=== PATIENT | female | born 1935 | race Caucasian/White ===

== ENCOUNTER 2017-02-14 07:58 | Inpatient (IN) | payer MEDICARE, OTHER ==
[~2017-02-14] VITALS: Ht 165.1 cm; Wt 63.2 kg
[2017-02-14] MEDS ORDERED: ASPI81CH CHEW (08:40)
[2017-02-14] MEDS ORDERED: MEMA28CA PO (08:40)
[2017-02-14] MEDS ORDERED: MULTTAB67 PO (08:40)
[2017-02-14] MEDS ORDERED: MELO-1 PO (08:40)
[2017-02-14] MEDS ORDERED: RISE1TAB PO (08:40)
[2017-02-28] MEDS ORDERED: ePHEDrine/NS 25 MG/5 ML SYR IV ONE (10:50)
[2017-02-28] MEDS ORDERED: PROPOFOL 200 MG/20 ML AMP IV ONE (10:50)
[2017-02-28] MEDS ORDERED: PHENYLEPH/NS 1000 MCG/10 ML SYR IV ONE (10:51)
[2017-02-28] MEDS ORDERED: LACTATED RINGER'S 1000 ML INJ 2,000 ML IV ONE (10:51)
[2017-02-28] MEDS ORDERED: ONDANSETRON HCL 4 MG/2 ML VIAL IV PUSH ONE (10:51)
[2017-02-28] MEDS ORDERED: LACTATED RINGER'S 1000 ML IV PRN (11:15)
[2017-02-28] MEDS ORDERED: POVIDONE IODINE 5% (ANTISEPSIS KIT) 4 APPLICATIONS EACH NARE PRN (11:15)
[2017-02-28] MEDS ORDERED: SODIUM CHLORID 0.9% 500 ML IV PRN (11:15)
[2017-02-28] MEDS ORDERED: CHLORHEXIDINE GLUCONATE 2 % 1 PACK (2 CLOTHS) TOPICAL PRN (11:15)
[2017-02-28] MEDS ORDERED: CHLORHEXIDINE GLUCONATE 4% SOLN 120 ML BTL TOPICAL SCH (11:15)
[2017-02-28] MEDS ORDERED: ceFAZolin 2 GM PREMIX 50 ML IV SCH (11:15)
[2017-02-28] MEDS ORDERED: METOPROLOL TARTRATE 25 MG TAB PO PRN (11:15)
[2017-02-28] MEDS ORDERED: VANCOMYCIN 1000 MG/NS 250 ML (for <70 kg) IV SCH ×2 (11:15)
[2017-02-28] MEDS ORDERED: INSULIN HUMAN REGULAR 1,000 UNITS/10 ML VIAL SQ PRN (11:15)
[2017-02-28 11:25] VITALS: BP 121/69; PULSE 73; RESP 16; TEMP 98; O2SAT 97
[2017-02-28] MEDS ORDERED: GENTAMICIN SULFATE 80 MG/2 ML VIAL ONE (11:47)
[2017-02-28] MEDS ORDERED: ROPIVACAINE PERI-ARTICULAR INJECTION. P-ARTICULR SCH ×5 (12:00)
[2017-02-28] MEDS ORDERED: DEXAMETHASONE SOD PHOS 4 MG/ML VIAL ONE (12:25)
[2017-02-28] MEDS ORDERED: MIDAZOLAM HCL 2 MG/2 ML VIAL ONE (12:25)
[2017-02-28] MEDS ORDERED: ROPIVACAINE 0.5% PF INJ 24.63 ML, KETOROLAC INJ 30 MG, EPINEPHrine (1:1000) INJ 0.5 MG,... P-ARTICULR SCH ×5 (14:00)
[2017-02-28] MEDS ORDERED: Post-op Orders (for Pharmacy) MISC XX ONE (15:00)
[2017-02-28] MEDS ORDERED: SODIUM CHLORIDE 0.9% FLUSH 5 ML FLUSH IVF PRN (15:00)
[2017-02-28] MEDS ORDERED: BEDSIDE COMMODE1 MI1 (15:02)
[2017-02-28] MEDS ORDERED: WALKER WHEELS/F1 MIS (15:02)
[2017-02-28] MEDS ORDERED: CPMMACHINE (15:02)
--- NOTE | 2017-02-28 15:04 | HHI.FF ---
Face to Face Verification Diagnosis: (1) Osteoarthritis of left knee Physical Therapy Gait training, Transfer training, bed to chair Knee: Total knee, Protocol: Left, Full weight bearing Right LE Weight Bearing: WB as tolerated Left LE Weight Bearing: WB as tolerated Nursing RN: 3 days/week x 2 weeks Nursing: Dressing changes (clean incision with alcohol and apply dry sterile dressing ) Additional Instructions PT/INR q Tuesday and , call/text results to Berenice ORTIZ [phone] Goal INR 1.5-1.8 I have seen patient Maricel Valdez on 02/28/17. My clinical findings support the need for the requested home health care services because: Limited ability to care for self High risk of falls I certify that my clinical findings support that this patient is homebound because: Post-op weakness Trevor Epperson MD Feb 28, 2017 15:04
--- NOTE | 2017-02-28 15:37 | RADRPT ---
EXAM DATE/TIME: 02/28/2017 14:57 [facility] COMPARISON: No previous studies available for comparison. INDICATIONS : post left knee arthroplasty MEDICAL HISTORY : Arthritis. SURGICAL HISTORY : ENCOUNTER: Initial ACUITY: 1 day PAIN SCORE: 0/10 LOCATION: Left Knee FINDINGS: AP and lateral views of the knee following arthroplasty reveals a prosthesis in anatomic alignment. F racture is not appreciated. Surgical drain is evident CONCLUSION: Status post total knee arthroplasty. Jefry Stern MD FACR. Board Certified Radiologist. This report was verified electronically.
[2017-02-28] MEDS ORDERED: DO NOT ADM ANY ANTICOAGULANT DRUGS PRN (16:45)
[2017-02-28] MEDS ORDERED: ZOLPIDEM TARTRATE 5 MG TAB PO PRN (17:00)
[2017-02-28] MEDS ORDERED: ONDANSETRON HCL 4 MG/2 ML VIAL IVP PRN (17:00)
[2017-02-28] MEDS ORDERED: ALUMINUM/MAGNESIUM/SIMETH 30 ML CUP PO PRN (17:00)
[2017-02-28] MEDS ORDERED: MORPHINE SULFATE 8 MG/ML INJ IM PRN (17:00)
[2017-02-28] MEDS ORDERED: ACETAMINOPHEN/HYDROcodone 325 MG/5 MG TAB PO PRN (17:00)
--- NOTE | 2017-02-28 17:07 | HHI.PR ---
Immediate Post Op Note Procedure Date: Feb 28, 2017 Pre Op Diagnosis: L Knee OA,Genu Valgus Deformity Post Op Diagnosis: Same Surgeon: Trevor Epperson MD [employer] Sales Director(s): Berenice Lopez PA-C Procedure: L TKR Complications: None Specimen(s) removed: None Estimated blood loss: 50cc Anesthesia: Regional Block, Spinal, Local Drains: Hemovac Tourniquet time (min at mmHg) 53 min @ 250 mm Hg Patient to: PACU Patient Condition: Good Implant/Devices: SEE IMPLANT LOG (if applicable) Date/Time of Procedure: SEE SURGICAL CARE RECORD Trevor Epperson MD Feb 28, 2017 17:07
[2017-02-28 18:37] VITALS: BP 129/98; PULSE 81; RESP 17; TEMP 96.7; O2SAT 100
[2017-02-28] MEDS: SODIUM CHLORIDE 0.9% FLUSH 5 ML FLUSH IVF SCH (21:00)
[2017-02-28] MEDS: MEMANTINE HCL 10 MG TAB PO SCH (21:53)
[2017-02-28 23:46] VITALS: O2SAT 100
[2017-03-01] VITALS: BP 135/67; PULSE 83; RESP 20; TEMP 96.9; O2SAT 100
[2017-03-01] MEDS ORDERED: MAGNESIUM HYDROXIDE SUSP 30 ML CUP PO PRN (00:45)
[2017-03-01] MEDS ORDERED: POLYETHYLENE GLYCOL 17 GM PKG PO PRN (00:45)
[2017-03-01 04:00] VITALS: BP 120/58; PULSE 89; RESP 20; TEMP 99.1; O2SAT 98
[2017-03-01] MEDS: LACTATED RINGER'S 1000 ML INJ 1,000 ML IV SCH ×2 (05:30→16:52)
[2017-03-01] MEDS: ACETAMINOPHEN/HYDROcodone 325 MG/5 MG TAB PO PRN ×4 (06:00→18:16)
--- NOTE | 2017-03-01 07:17 | PD.ORT.PN ---
Subjective Subjective Remarks POD#1 L TKR No sob;no chest pain Objective Vitals Vital Signs Date Time Temp Pulse Resp B/P Pulse Ox O2 Delivery O2 Flow Rate FiO2 03/01/17 07:03 18 03/01/17 04:00 99.1 89 20 120/58 98 03/01/17 03:19 Room Air 03/01/17 00:00 96.9 83 20 135/67 100 02/28/17 23:46 100 02/28/17 18:37 96.7 81 17 129/98 100 02/28/17 18:25 71 16 141/62 98 Room Air 02/28/17 18:00 72 16 137/63 100 Room Air 02/28/17 17:45 78 16 124/58 100 Room Air 02/28/17 17:30 74 16 131/62 100 Room Air 02/28/17 17:15 76 16 131/63 99 Room Air 02/28/17 17:00 82 16 127/61 100 Room Air 02/28/17 16:45 84 16 145/53 99 Room Air 02/28/17 16:15 93 16 109/52 97 Room Air 02/28/17 16:00 88 16 131/52 100 Room Air 02/28/17 15:45 92 16 111/59 98 Room Air 02/28/17 15:30 83 16 102/51 99 Room Air 02/28/17 15:15 81 16 116/49 98 Room Air 02/28/17 15:00 85 16 98/55 100 Simple Mask 10 02/28/17 14:53 96.8 78 16 117/49 100 Simple Mask 10 02/28/17 11:25 98.0 73 16 121/69 97 I/O 02/28/17 02/28/17 02/28/17 03/01/17 03/01/17 03/01/17 07:00 15:00 23:00 07:00 15:00 23:00 Intake Total 1800 ml 874 ml 945 ml Output Total 50 ml 175 ml Balance 1750 ml 699 ml 945 ml Intake Oral 240 ml 360 ml IV Total 134 ml 585 ml Other 1800 ml 500 ml Output Urine Total 0 ml Drainage Total 25 ml Estimated Blood Loss 50 ml Autotransfusion 150 ml # Voids 1 2 # Bowel Movements 0 2 Imaging Last 24 hours Impressions Knee X-Ray 02/28/17 5235 Signed Impressions: Service Date/Time: Tuesday, February 28, 2017 14:57 - CONCLUSION: Status post total knee arthroplasty. Jefry Stern MD Objective Remarks N/V intact No calf tenderness;neg glenda's Assessment & Plan Assessment and Plan Ortho stable PT/Rehab today Coumadin,TEDS,sequentials for DVT prophylaxsis D/C home today or tomorrow Trevor Epperson MD Mar 01, 2017 07:17
[2017-03-01 07:19] LABS: HEMATOCRIT 32.1 % (35.0-46.0); REVIEW FLAG FINAL
[2017-03-01 07:20] LABS: INTERNATIONAL NORMALIZED RATIO 1.6 RATIO; PROTHROMBIN TIME - PATIENT 17.5 SEC (9.8-11.6)
[2017-03-01 08:00] VITALS: BP 122/63; PULSE 87; RESP 17; TEMP 98.7; O2SAT 97
[2017-03-01] MEDS: MEMANTINE HCL 10 MG TAB PO SCH ×2 (08:42→21:36)
[2017-03-01] MEDS: SODIUM CHLORIDE 0.9% FLUSH 5 ML FLUSH IVF SCH ×2 (08:49→21:00)
[2017-03-01 11:38] VITALS: BP 96/54; PULSE 78; RESP 17; TEMP 98.7; O2SAT 98
--- NOTE | 2017-03-01 15:13 | MB ---
cc: JAMIE SHORE MD Corrected Copy: 03/02/17 DATE OF CONSULTATION: 03/01/2017 DATE OF : 1935 REASON FOR CONSULTATION Medical management. HISTORY OF PRESENT ILLNESS This is a pleasant 82-year-old white female who had been dealing with osteoarthritis in her left knee which affected her usual ADLs. The patient was followed per ortho and had multiple outpatient medical treatment regimens She elected for a right total knee arthroplasty. This was performed on 02/28/[address] Epperson. The patient is on Coumadin therapy with a history of valvular heart disease as well as other co-morbidities. Noted dizziness today x1 when attempting to get up with rehab for the first time being out of bed. Her symptoms passed after a few minutes of sitting up. The hospitalist service will assist with her management. PAST MEDICAL HISTORY 1. Osteoporosis. 2. Osteoarthritis. 3. Degenerative disc disease. 4. Heart murmur. 5. Urinary urgency. PAST SURGICAL HISTORY 1. GB removal. 2. Right foot bunionectomy. 3. Tonsillectomy. MEDICATIONS 1. Meloxicam. 2. Atelvia. 3. ASA. 4. Coumadin. 5. Vitamins. FAMILY HISTORY CVA. SOCIAL HISTORY The patient lives alone. Nonsmoker. Occasional wine input. REVIEW OF SYSTEMS She is having pain in her right knee. She is status post left total knee arthroplasty. Drain is still in place. The patient did note some dizziness when up with PT this morning. Other systems are negative or unremarkable. PHYSICAL EXAMINATION VITAL SIGNS: Temperature has been as high as 99.1 today, currently 98.7, pulse 78, respirations 18, blood pressure today 120/58, 122/63 and 96/54. GENERAL: An elderly white female who looks her stated age sitting up in a chair. She is awake and answers questions appropriately. SKIN: Pale, warm and dry. HEENT: Atraumatic, normocephalic. PERRLA. Oral is slightly dry. Some mild clear nasal drainage. NECK: Supple. CARDIOVASCULAR: S1, S2. Rhythm is regular. Systolic murmur heard at the left sternal border. She has no edema in her right leg and both upper extremities. Pulses are intact. Left leg and knee have some generalized edema noted around the surgical site, otherwise none in the left lower extremity. LUNGS: Lung sounds essentially clear anteriorly and posteriorly with no wheezes or rhonchi. ABDOMEN: Flat, soft, nontender, nondistended. Active bowel sounds. MUSCULOSKELETAL: No obvious deformities. Moving her extremities purposefully. She can move her left foot and toes on command. Her dressing is secure and intact. NEUROLOGIC: She is alert, awake, answers questions appropriately. PSYCHIATRIC: Mood and affect are appropriate. LABORATORY DATA Hemoglobin drawn on the 25th is 10.8. INR is 1.6. ASSESSMENT 1. Severe osteoarthritis left knee status post right total knee arthroplasty. 2. Hypertension. 3. Diabetes type 2 insulin dependent. PLAN The plan is to monitor and assist with her medical management. The patient's Coumadin is to be started today 03/01/2017. Will monitor with the assistance of pharmacy for her dosing. Pain management and post-op care per the orthopedic team. The patient is being assisted with the rehab PT and OT team. DVT prophylaxis with Coumadin and TEDs. It is noted from an orthopedic standpoint she is stable. Discharge planning will be tentatively tomorrow pending any other symptoms of dizziness. The patient's blood pressure was noted to be 96/54. Will encourage p.o. fluids. Will monitor her pain management. Will encourage the patient to sit on the side of the bed for a few seconds to gain her strength before trying to stand. Her plan is to go home and work with therapy in her home. Her daughter is at her bedside and states that she will be with her. We appreciate the consult. Dictated by: MAXINE Velazquez MD SIN Nicolas/DAKOTA /2:30 PM /10:16 AM
[2017-03-01 16:00] VITALS: BP 141/72; PULSE 80; RESP 18; TEMP 98.1; O2SAT 100
[2017-03-01] MEDS ORDERED: WARFARIN SOD 5 MG TAB PO SCH (16:00)
[2017-03-01 20:25] VITALS: BP 139/65; PULSE 87; RESP 16; TEMP 98.7; O2SAT 97
[2017-03-02 00:15] VITALS: BP 141/72; PULSE 82; RESP 17; TEMP 97.9; O2SAT 96
[2017-03-02] MEDS: LACTATED RINGER'S 1000 ML INJ 1,000 ML IV SCH (06:30)
[2017-03-02 07:00] LABS: AUTOMATED NEUTROPHIL # 4.9 TH/MM3 (1.8-7.7); BASOPHIL % 0.8 % (0.0-2.0); EOSINOPHIL # 0.1 TH/MM3 (0-0.4); EOSINOPHIL % 0.9 % (0.0-4.0); HEMATOCRIT 31.7 % (35.0-46.0); HEMO FLAGS DIFF FINAL; LYMPH % 7.8 % (9.0-44.0); LYMPHOCYTE # 0.5 TH/MM3 (1.0-4.8); MEAN CELL VOLUME 98.4 FL (80.0-100.0); MEAN CORPUSCULAR HEMOGLOBIN 33.6 PG (27.0-34.0); MEAN CORPUSCULAR HGB CONC 34.1 % (32.0-36.0); MONO % 11.2 % (0.0-8.0); NEUT % 79.3 % (16.0-70.0); PLATELET COUNT 185 TH/MM3 (150-450); RED BLOOD COUNT 3.22 MIL/MM3 (4.00-5.30); WHITE BLOOD COUNT 6.2 TH/MM3 (4.0-11.0)
[2017-03-02 07:03] LABS: INTERNATIONAL NORMALIZED RATIO 1.7 RATIO; PROTHROMBIN TIME - PATIENT 19.4 SEC (9.8-11.6)
[2017-03-02 07:19] LABS: BICARBONATE 25.1 MEQ/L (21.0-32.0); POTASSIUM 3.7 MEQ/L (3.5-5.1)
--- NOTE | 2017-03-02 07:37 | PD.ORT.PN ---
Subjective Subjective Remarks pt doing better, post op knee pain dizziness from yesterday has resolved no chest pain Objective Vitals Vital Signs Date Time Temp Pulse Resp B/P Pulse Ox O2 Delivery O2 Flow Rate FiO2 03/02/17 03:21 Room Air 03/02/17 00:15 97.9 82 17 141/72 96 03/02/17 00:12 Room Air 03/01/17 20:25 98.7 87 16 139/65 97 03/01/17 19:15 18 03/01/17 16:00 98.1 80 18 141/72 100 03/01/17 11:38 98.7 78 17 96/54 98 03/01/17 08:00 98.7 87 17 122/63 97 I/O 03/01/17 03/01/17 03/01/17 03/02/17 03/02/17 03/02/17 07:00 15:00 23:00 07:00 15:00 23:00 Intake Total 945 ml 400 ml 240 ml 240 ml Balance 945 ml 400 ml 240 ml 240 ml Intake Oral 360 ml 400 ml 240 ml 240 ml IV Total 585 ml # Voids 2 3 1 1 # Bowel Movements 2 0 0 0 Result Diagram: 03/02/17 0536 03/02/17 0536 Other Results Laboratory Tests Test 03/02/17 05:36 Prothrombin Time 19.4 SEC (9.8-11.6) Prothromb Time International 1.7 RATIO Ratio Imaging Last 24 hours Impressions Knee X-Ray 02/28/17 1454 Signed Impressions: Service Date/Time: Tuesday, February 28, 2017 14:57 - CONCLUSION: Status post total knee arthroplasty. Jefry Stern MD Objective Remarks seen in the room with her daughter Cheryl sitting up comfortably in chair left knee dressing dry and intact N/V intact No calf tenderness;neg glenda's Assessment & Plan Assessment and Plan POD #2 s/p L TKA PT/Rehab today Coumadin,TEDS,sequentials for DVT prophylaxsis D/C home today with [facility], orthopedically stable Berenice Lopez Mar 02, 2017 07:37
[2017-03-02 08:00] VITALS: BP 175/86; PULSE 91; RESP 18; TEMP 99; O2SAT 97
--- NOTE | 2017-03-02 08:50 | HHI.DS ---
Discharge Summary Admission Date Feb 28, 2017 at 10:29 Discharge Date: Mar 02, 2017 Admitting Diagnosis Left knee osteoarthritis Diagnosis: (1) Osteoarthritis of left knee Diagnosis: Principal Procedures Left total knee arthroplasty Brief History This is an 82 year old female patient who presents with the following history. Patient has had increasing pain involving her left knee with weight bearing ambulation. She has tried over the counter medications and has also been on Meloxicam prescription anti-inflammatory. She has tried ice. She was provided a hinged knee cage brace in 2012 and has also failed exercise over the years and use of a cane. She had a left knee intra-articular steroid injection in 2012 which only provided relief temporarily. She states her pain has progressed and is now interfering with activities of daily living. CBC/BMP: 03/02/17 0536 03/02/17 0536 Significant Findings Laboratory Tests Test 03/01/17 03/02/17 05:44 05:36 Hemoglobin 10.8 GM/DL 10.8 GM/DL (11.6-15.3) (11.6-15.3) Hematocrit 32.1 % 31.7 % (35.0-46.0) (35.0-46.0) Prothrombin Time 17.5 SEC 19.4 SEC (9.8-11.6) (9.8-11.6) Red Blood Count 3.22 MIL/MM3 (4.00-5.30) Neutrophils (%) (Auto) 79.3 % (16.0-70.0) Lymphocytes (%) (Auto) 7.8 % (9.0-44.0) Monocytes (%) (Auto) 11.2 % (0.0-8.0) Lymphocytes # (Auto) 0.5 TH/MM3 (1.0-4.8) Blood Urea Nitrogen 6 MG/DL (7-18) Creatinine 0.35 MG/DL (0.50-1.00) Imaging x-rays of the left knee show tri compartment osteoarthritis with 8.9 degrees of genu valgus PE at Discharge seen in the room with her daughter Cheryl sitting up comfortably in chair left knee dressing dry and intact N/V intact No calf tenderness;neg [facility] Hospital Course Patient underwent satisfactory anaesthesia by the dept. of anaesthesia. She underwent left total knee arthroplasty on the date of admission. She did well following the procedure. She does have history of aortic stenosis and was carefully monitored after her procedure. She was started with physical therapy , full weight bearing ambulation and CPM machine on pod #1. She was treated with low dose coumadin night before her procedure and will be continued to be treated with low dose coumadin for four weeks post operatively. She also had knee high TEDs and sequentials during her stay. Medical was consulted and followed patient during her stay. She was going to be discharged on pod #1 since she was doing so well but then began to experience dizziness. Her dizziness had resolved by the following day and she was discharged in stable condition on pod #2 home with home health therapy and nursing. Pt Condition on Discharge: Stable Discharge Disposition: Disch w/ Home Health Serv Discharge Instructions Diet Instructions: Coumadin (Warfarin) Diet Activities You Can Perform: Weight Bearing as Berenice Nuñez Mar 02, 2017 08:50
[2017-03-02] MEDS: SODIUM CHLORIDE 0.9% FLUSH 5 ML FLUSH IVF SCH (09:00)
[2017-03-02] MEDS: MEMANTINE HCL 10 MG TAB PO SCH (09:44)
[2017-03-02] MEDS: ACETAMINOPHEN/HYDROcodone 325 MG/5 MG TAB PO PRN (09:44)
--- NOTE | 2017-03-02 10:22 | HHI.PR ---
Subjective Remarks Resting in chair Afebrile Daughter in room Status post left total knee arthroplasty Objective Objective Results - Vital Signs Date Time Temp Pulse Resp B/P Pulse Ox O2 Delivery O2 Flow Rate FiO2 03/02/17 08:00 99.0 91 18 175/86 97 03/02/17 03:21 Room Air 03/02/17 00:15 97.9 82 17 141/72 96 03/02/17 00:12 Room Air 03/01/17 20:25 98.7 87 16 139/65 97 03/01/17 19:15 18 03/01/17 16:00 98.1 80 18 141/72 100 03/01/17 11:38 98.7 78 17 96/54 98 I/O 03/01/17 03/01/17 03/01/17 03/02/17 03/02/17 03/02/17 07:00 15:00 23:00 07:00 15:00 23:00 Intake Total 945 ml 400 ml 240 ml 240 ml Balance 945 ml 400 ml 240 ml 240 ml Intake Oral 360 ml 400 ml 240 ml 240 ml IV Total 585 ml # Voids 2 3 1 1 # Bowel Movements 2 0 0 0 Result Diagram: 03/02/17 0536 03/02/17 0536 ROS General: Other (10 point ROS done positives noted) GI: BM (laxative before discharge) Neuro/MS: Other (postop left knee pain) Physical Exam Physical Exam PHYSICAL EXAMINATION GENERAL: This is a well-developed, well-nourished elderly female who appears to be in no acute distress. She is alert and awake, []. HEAD: Normocephalic without any lesion or mass noted. Facial features appear symmetric. OROPHARYNGEAL: Oropharynx without erythema or edema. NECK: Supple. No nuchal rigidity or lymphadenopathy. Trachea midline without deviation. CARDIAC: Regular rhythm, regular rate, S1 and S2 are heard. LUNGS: Clear to auscultation bilaterally, encouraged to turn cough and deep breathe ABDOMEN: Soft, nontender, no organomegaly or masses. Bowel sounds are heard in all four quadrants. No rebound. No guarding. EXTREMITIES: Mild lower extremity left leg edema. Pulses equal bilateral. Left knee dressing clean dry and intact NEUROLOGICAL: Patient mood and affect appropriate. No focal deficit SKIN:Warm and moist A/P Assessment and Plan Assessment Osteoarthritis, patient is status post total left knee replacement Hypertension Diabetes type 2 insulin-dependent plan Vital signs reviewed Labs reviewed hemoglobin 11.2, no acute blood loss noted Total left left knee replacement, post op care. Physical therapy and pain management per orthopedic team Bowel regimen, planned for laxative today before discharge Hypertension stable with medications Diabetes type 2 insulin-dependent Accu-Cheks before meals and at bedtime, tolerating ADA diet without difficulty Patient up in room up in chair today Discharge planning probable today Encouraged incentive spirometry to carry home and use at home Discussed with Dr. li, seen on her behalf Discussed with patient and her daughter Discussed with nurse Discharge Planning Up in chair Awake alert Appetite good Afebrile Romina Oleary Mar 02, 2017 10:22
--- NOTE | 2017-03-02 13:21 | MP ---
cc: WARNER NUÑEZ, DR. EPPERSON,ZENY BASSETT DATE OF SURGERY 02/28/2017 PREOPERATIVE DIAGNOSIS Left knee severe tricompartmental osteoarthritis, genu valgus deformity. POSTOPERATIVE DIAGNOSIS Left knee severe tricompartmental osteoarthritis, genu valgus deformity. PROCEDURE Left total knee arthroplasty - Cemented [employer] Vanguard total knee arthroplasty. SURGEON Glory Epperson MD ASSESSMENT Berenice Lopez PA-C SPECIMENS None ESTIMATED BLOOD LOSS 50 cc COMPLICATIONS None ANESTHESIA Spinal, regional, local DRAINS Two TOURNIQUET TIME 53 minutes at 250 mmHg CONDITION Stable PLAN OF ACTIVITY As per orders. PROCEDURE My activities assistant Berenice Lopez PA-C was present for the entire surgical case. She was medically necessary for the entire case because of the complexity case and to facilitate the performance of the procedure. The EDGE BURNISHER at the back table was not a skill set in this case to manipulate the instruments e.g. the multiple different types of soft tissue retractors, trial implants and permanent implants. The patient was brought into the operating room and had satisfactory anesthesia by Dr. Kane Jasmine of the Department of Anesthesia. The left lower extremity was prepped and draped in the usual sterile manner. The extremity was exsanguinated by elevation and the tourniquet was inflated to 250 mmHg. A small anterior medial exposure to knee was made. A paramedian capsulotomy was performed. The patient was found to have severe osteoarthritis in all three compartments of the knee with also a moderate degree of synovitis. The remaining portion of the medial lateral meniscus removed. The anterior cruciate ligament was removed. The posterior cruciate ligament was preserved. Prepatellar fat pad was excised. The knee was flexed. Using the [employer] Vanguard total knee arthroplasty system, IM guide was used for the distal femur. This was to accept a 5 degrees valgus cut and a 67.5 mm femoral component. The extramedullary guide was used for the proximal tibia. This was to accept a 75 mm tibial component. A 12 mm insert was found to be stable and satisfactory. Excellent balance with knee in flexion and extension. The undersurface of the patella was removed to accept a 31 mm three-pronged patellar prosthesis. All trial components were removed and preparation for cementing was made. The knee was injected with 50 cc of local anesthesia supplied by the pharmacy department. First the tibial component, which was a 75 mm tibial component, was cemented followed by the femoral component, a 67.5 mm femoral component, followed by the patella component 31 mm three-pronged patellar prosthesis. Bone and cement was allowed to harden for 13 minutes. A 12 x 75 mm polyethylene plastic was sewn onto the tibial tray stable and satisfactorily. Again, the patient was found to have excellent balance in both flexion and extension. The tourniquet was deflated. All bleeders were coagulated. The wound closed over two Hemovac drains hooked up to the Autovac system. The knee was irrigated with 4000 cc of sterile saline antibiotic solution. The capsule and extensor mechanism was repaired using multiple #2 Tycron suture. The subcutaneous tissues closed in layers with 0 Vicryl and 2-0 Vicryl. Skin was approximated skin jodi. Sterile dressings were applied. The patient tolerated the procedure well and arrived in the recovery room in stable and satisfactory condition. MD MARIO Mcgregor/JOSEFINA /4:38 PM /12:59 PM
== END 2017-03-02 10:54 | disposition home health service (06) | DRG 470 ==
LOC: HSDI 02-28 10:29 → N06A 02-28 18:37
PROVIDERS: ADMIT Orthopaedic Surgery Orthopaedic Surgery of the Spine; ATTEND Orthopaedic Surgery Orthopaedic Surgery of the Spine
PROC: 3E0T3CZ (ICD-10-PCS; 2017-02-28)
PROC: 0SRD0J9 Replacement of Left Knee Joint with Synthetic Substitute, Cemented, Open Approach (ICD-10-PCS; principal; 2017-02-28 12:29)
DX: M17.10 Unilateral primary osteoarthritis, unspecified knee (principal); E11.9 Type 2 diabetes mellitus without complications; I35.0 Nonrheumatic aortic (valve) stenosis; I10 Essential (primary) hypertension; M65.9 Synovitis and tenosynovitis, unspecified; M21.069 Valgus deformity, not elsewhere classified, unspecified knee; Z01.812 Encounter for preprocedural laboratory examination; M17.12 Unilateral primary osteoarthritis, left knee; Z79.4 Long term (current) use of insulin; M81.0 Age-related osteoporosis without current pathological fracture; Z79.01 Long term (current) use of anticoagulants
CPT/HCPCS: 73560; 80048; 85014; 85018; 85025; 85610; 86850; 86900; 86901; 86920; 94150; C1776; J0171; J0690; J0735; J1100; J1580; J1885; J2250; J2370; J2405; J2795; J3370; J7050; J7120; L1830

== ENCOUNTER → 2017-02-14 | Outpatient (CLI) | payer MEDICARE, OTHER ==
[~2017-02-14] MED LIST: ASPI81CH CHEW; MELO-1 PO; MEMA28CA PO; MULTTAB67 PO; RISE1TAB PO
[2017-02-14 08:55] LABS: AUTOMATED NEUTROPHIL # 2.9 TH/MM3 (1.8-7.7); BASOPHIL # 0.1 TH/MM3 (0-0.2); BASOPHIL % 2.2 % (0.0-2.0); EOSINOPHIL # 0.2 TH/MM3 (0-0.4); EOSINOPHIL % 3.5 % (0.0-4.0); HEMATOCRIT 39.8 % (35.0-46.0); HEMO FLAGS DIFF FINAL; LYMPH % 28.7 % (9.0-44.0); LYMPHOCYTE # 1.5 TH/MM3 (1.0-4.8); MEAN CELL VOLUME 97.4 FL (80.0-100.0); MEAN CORPUSCULAR HEMOGLOBIN 32.9 PG (27.0-34.0); MEAN CORPUSCULAR HGB CONC 33.8 % (32.0-36.0); NEUT % 54.6 % (16.0-70.0); PLATELET COUNT 254 TH/MM3 (150-450); RED BLOOD COUNT 4.09 MIL/MM3 (4.00-5.30); RED CELL DISTRIBUTION WIDTH 13.2 % (11.6-17.2); WHITE BLOOD COUNT 5.3 TH/MM3 (4.0-11.0)
[2017-02-14 09:08] LABS: BLOOD, URINE NEG (NEG); COMMENT (UR) CULT NOT INDICATED; CULTURE IF INDICATED CULT NOT INDICATED; GLUCOSE,URINE NEG (NEG); KETONE, URINE NEG (NEG); MUCUS URINE FEW /lpf (OCC); NITRITE,URINE NEG (NEG); PH, URINE 7.5 (5.0-8.5); URINE COLOR LIGHT-YELLOW (YELLW/STRAW)
[2017-02-14 09:28] LABS: BICARBONATE 26.7 MEQ/L (21.0-32.0); POTASSIUM 3.8 MEQ/L (3.5-5.1)
--- NOTE | 2017-02-14 13:17 | EKG ---
Date Performed: 02/14/2017 Time Performed: 08:32:09 PTAGE: 81 years EKG: Sinus rhythm POSSIBLE LEFT ATRIAL ENLARGEMENT BORDERLINE ECG NO PREVIOUS TRACING DOCTOR: Remington Dunham Interpretating Date/Time 02/14/2017 13:13:13
== END ==
LOC: CPRE 07:54
PROVIDERS: ATTEND Orthopaedic Surgery Orthopaedic Surgery of the Spine
DX: Z01.810 Encounter for preprocedural cardiovascular examination (principal); Z01.812 Encounter for preprocedural laboratory examination; M17.10 Unilateral primary osteoarthritis, unspecified knee; R94.31 Abnormal electrocardiogram [ECG] [EKG]
CPT/HCPCS: 36415; 80048; 81001; 85025; 93005